=== PATIENT | male | born 1945 | race Caucasian/White ===

== ENCOUNTER → 2018-05-20 07:01 | Outpatient (CLI) | payer MEDICARE, SELFPAY ==
[2018-05-20 09:47] LABS: Alanine Aminotransferase 39 IU/L (21-72); Albumin 4.4 g/dL (3.5-5.0); Albumin Globulin Ratio 1.6 (1.0-2.8); Alkaline Phosphatase 67 U/L (38-126); Aspartate Aminotransferase 28 IU/L (17-59); BUN Creatinine Ratio 21.1 (6-22); Bilirubin Total 0.9 mg/dL (0.2-1.3); Blood Urea Nitrogen 19 mg/dL (9-20); Calcium 8.9 mg/dL (8.4-10.2); Carbon Dioxide 27 mmol/L (22-32); Chloride 103 mmol/L (98-107); Cholesterol 114 mg/dL (140-199); Estimated Glomerular Filt Rate > 60.0 mL/min (>60); Globulin 2.8 g/dL (1.7-4.1); Glucose 88 mg/dL (80-110); HDL Cholesterol 33 mg/dL (40-60); HEMOLYSIS < 15 (0-50); LDL Cholesterol Calculated 59 mg/dL (<100); Potassium 4.3 mmol/L (3.4-5.1); Sodium 144 mmol/L (137-145); Total Protein 7.2 g/dL (6.3-8.2); Triglycerides 112 mg/dL (35-150)
[2018-05-20 10:15] LABS: Prostate Specific Antigen Scrn 2.19 ng/mL (0.1-4.0)
== END ==
PROVIDERS: PCP Internal Medicine; Visit Provider Internal Medicine
DX: Z00.00 Encounter for general adult medical examination without abnormal findings (principal); I25.10 Atherosclerotic heart disease of native coronary artery without angina pectoris
CPT/HCPCS: 36415; 80053; 80061; G0103

== ENCOUNTER → 2019-07-27 07:53 | Outpatient (CLI) | payer MEDICARE, SELFPAY ==
--- NOTE | 2019-07-27 | DI.ECHO.S_ITS ---
[facility]---------+ [facility] +---------+ : : [address] : : : : [id number] : : : : Phone: [phone] +---------+ Echocardiogram Report + + :Name: SANJUANITA HOLLIDAY Study Date: 07/27/2019 Height: 67 in : :[facility] Weight: 190 lb : : Gender: Male BSA: 2.0 m2 : :: 1945 Age: 74 yrs BP: 142/80 mmHg: :Reason For Study: coronary angioplasty implant and graft : :Ordering Physician: Lowell : :Shane Babb Performed By: LRF : :Referring: LOWELL LYNN : + + Interpretation Summary The ejection fraction is estimated to be 55-60%. The right ventricle is mildly dilated. This is unchanged compared to the previous study. Right ventricular systolic function is mildly reduced. There is trace tricuspid regurgitation. The ascending aorta is mild-moderately enlarged. Procedure: A two-dimensional transthoracic echocardiogram with color flow and Doppler was performed. The study quality was technically adequate. Comparison is made with the echocardiogram of 07/23/2016. The subcostal views were difficult to obtain and are suboptimal in quality. The patient was in sinus bradycardia with heart rates between 55-62 bpm during the exam. The patient had occasional PVCs during the exam. Left Ventricle: The left ventricle is normal in size and wall thickness. The ejection fraction is estimated to be 55-60%. Left ventricular wall motion is normal. Right Ventricle: The right ventricle is mildly dilated. This is unchanged compared to the previous study. Right ventricular systolic function is mildly reduced. Atria: Both atria are normal in size. There is no Doppler evidence for an interatrial shunt. Mitral Valve: The mitral valve is normal in structure and function. There is trace mitral regurgitation. Aortic Valve: The aortic valve is trileaflet. The aortic valve opens well. No aortic regurgitation is present. Tricuspid Valve: The tricuspid valve is normal in structure and function. There is trace tricuspid regurgitation. Pulmonic Valve: The pulmonic valve is not well visualized. There is moderate pulmonic regurgitation. Great Vessels: The aortic root is normal size. The ascending aorta is mild- moderately enlarged. The inferior vena cava was not visualized. Pericardium/ Pleura There is no pericardial effusion. MMode/2D Measurements & Calculations LVIDd: 4.3 cm LVOT diam: 2.2 cm LVIDs: 3.0 cm Ao root diam: 3.2 cm FS: 31.1 % asc Aorta Diam: 3.7 cm EPSS: 0.95 cm IVSd: 1.0 cm LVPWd: 0.94 cm LV grimes. diameter/BSA (cm/m^2): 2.2 LV sys. diameter/BSA (cm/m^2): 1.5 LA A2 area: 19.2 cm2 RA long axis: 5.0 cm LA A4 area: 15.9 cm2 RA area: 15.4 cm2 LA length (vol): 4.7 cm RA vol: 40.7 ml LA vol: 54.7 ml RA : 20.5 ml/m2 LA vol index: 27.6 ml/m2 RVD1 (basal): 4.1 cm Doppler Measurements & Calculations Ao V2 max: 108.8 cm/sec LVOT Max Neel: 88.7 cm/sec Ao V2 mean: 65.4 cm/sec LV V1 max P.1 mmHg Ao max P.7 mmHg LV V1 VTI: 21.4 cm Ao mean P.1 mmHg VARUN(I,D): 3.6 cm2 Ao V2 VTI: 21.8 cm VARUN(V,D): 3.0 cm2 sev ratio: 0.98 VARUN indexed to BSA (cm^2/m^2): 1.8 MV E max neel: 54.2 cm/sec PA V2 max: 73.0 cm/sec MV A max neel: 61.0 cm/sec PA V2 mean: 47.5 cm/sec MV E/A: 0.89 PA mean P.0 mmHg Med Peak E' Neel: 5.5 cm/sec E/E' med: 9.8 Lat Peak E' Neel: 8.5 cm/sec E/E' lat: 6.4 E/e' average: 8.1 MV dec time: 0.18 sec MV P1/2t: 56.8 msec MV P1/2t max neel: 55.9 cm/sec SV(LVOT): 79.4 ml MVA(P1/2t): 3.9 cm2 Reading Physician:11:37 AM
== END ==
PROVIDERS: PCP Internal Medicine; Referring Provider Internal Medicine Cardiovascular Disease; Visit Provider Internal Medicine Cardiovascular Disease
DX: I37.1 Nonrheumatic pulmonary valve insufficiency (principal); I25.119 Atherosclerotic heart disease of native coronary artery with unspecified angina pectoris; Z95.5 Presence of coronary angioplasty implant and graft; I77.89 Other specified disorders of arteries and arterioles
CPT/HCPCS: 93306

== ENCOUNTER → 2019-08-17 07:53 | Outpatient (CLI) | payer MEDICARE, SELFPAY ==
[2019-08-17 09:19] LABS: Alanine Aminotransferase 38 IU/L (<50); Albumin 4.6 g/dL (3.5-5.0); Albumin Globulin Ratio 1.5 (1.0-2.8); Alkaline Phosphatase 72 U/L (38-126); Aspartate Aminotransferase 32 IU/L (17-59); BUN Creatinine Ratio 17.8 (6-22); Bilirubin Total 0.5 mg/dL (0.2-1.3); Blood Urea Nitrogen 16 mg/dL (9-20); Calcium 9.5 mg/dL (8.4-10.2); Carbon Dioxide 28 mmol/L (22-32); Chloride 104 mmol/L (98-107); Cholesterol 146 mg/dL (140-199); Estimated Glomerular Filt Rate > 60.0 mL/min (>60); Glucose 103 mg/dL (80-110); HDL Cholesterol 30 mg/dL (40-60); HEMOLYSIS < 15 (0-50); LDL Cholesterol Calculated 62 mg/dL (<100); Potassium 4.4 mmol/L (3.4-5.1); Sodium 142 mmol/L (137-145); Total Protein 7.6 g/dL (6.3-8.2); Triglycerides 272 mg/dL (35-150)
[2019-08-17 09:49] LABS: Prostate Specific Antigen Scrn 1.86 ng/mL (0.1-4.0)
== END ==
PROVIDERS: PCP Internal Medicine; Referring Provider Internal Medicine; Visit Provider Internal Medicine
DX: Z00.00 Encounter for general adult medical examination without abnormal findings (principal); I25.10 Atherosclerotic heart disease of native coronary artery without angina pectoris; E78.00 Pure hypercholesterolemia, unspecified
CPT/HCPCS: 36415; 80053; 80061; G0103

== ENCOUNTER → 2021-05-08 07:13 | Outpatient (CLI) | payer MEDICARE, SELFPAY ==
[2021-05-08 08:17] LABS: Add Manual Diff / Slide Review NO; Basophils Absolute Auto 0 /uL (0-100); Basophils Percent Auto 0.7 % (0-2); Eosinophils Absolute Auto 400 /uL (0-450); Hematocrit 46.5 % (41-53); Hemoglobin 15.9 g/dL (13.5-17.5); Lymphocytes Absolute Auto 1700 /uL (1100-4500); Mean Corpuscular HGB Conc 34.1 % (30-36); Mean Corpuscular Hemoglobin 31.2 PG (26-34); Mean Corpuscular Volume 91.4 fL (80-100); Monocytes Absolute Auto 600 /uL (0-900); Monocytes Percent Auto 9.2 % (3-14); Neutrophils Absolute Auto 3700 /uL (1500-7000); Neutrophils Percent Auto 58.1 % (50-75); Platelet Count 202 X10^3/uL (150-400); Red Blood Cell Count 5.09 X10^6/uL (4.5-5.9); Red Cell Distribution Width 13.1 % (11.6-14.8); White Blood Cell Count 6.4 X10^3/uL (4.5-11.0)
[2021-05-08 09:02] LABS: Alanine Aminotransferase 40 IU/L (<50); Albumin 4.5 g/dL (3.5-5.0); Albumin Globulin Ratio 1.6 (1.0-2.8); Alkaline Phosphatase 61 U/L (38-126); Aspartate Aminotransferase 34 IU/L (17-59); BUN Creatinine Ratio 20.2 (6-22); Bilirubin Total 1.1 mg/dL (0.2-1.3); Blood Urea Nitrogen 18 mg/dL (9-20); Calcium 9.4 mg/dL (8.4-10.2); Carbon Dioxide 28 mmol/L (22-32); Chloride 104 mmol/L (98-107); Cholesterol 136 mg/dL (140-199); Estimated Glomerular Filt Rate > 60.0 mL/min (>60); Globulin 2.9 g/dL (1.7-4.1); Glucose 88 mg/dL (80-110); HDL Cholesterol 31 mg/dL (40-60); HEMOLYSIS < 15 (0-50); LDL Cholesterol Calculated 72 mg/dL (<100); Potassium 4.4 mmol/L (3.4-5.1); Sodium 140 mmol/L (137-145); Total Protein 7.4 g/dL (6.3-8.2); Triglycerides 166 mg/dL (35-150)
[2021-05-08 09:31] LABS: Prostate Specific Antigen 1.68 ng/mL (0.10-4.00)
== END ==
PROVIDERS: PCP Internal Medicine; Referring Provider Internal Medicine; Visit Provider Internal Medicine
DX: I25.119 Atherosclerotic heart disease of native coronary artery with unspecified angina pectoris (principal); Z12.5 Encounter for screening for malignant neoplasm of prostate
CPT/HCPCS: 36415; 80053; 80061; 84153; 85025; G0103

== ENCOUNTER → 2021-12-24 08:59 | Outpatient (CLI) | payer MEDICARE, SELFPAY ==
--- NOTE | 2021-12-24 09:02 | DI.ECHO.S_ITS ---
[facility] +---------+ [facility] +---------+ : : [address] : : : : [id number] : : : : Phone: [phone] +---------+ Echocardiogram Report + + :Name: SANJUANITA HOLLIDAY Study Date: 12/24/2021 Height: 66 in : :[facility] ReadingLocation: Weight: 195 lb : : Gender: Male BSA: 2.0 m2 : :: 1945 Age: 76 yrs BP: 156/100 mmHg: :Reason For Study: ATHEROSCLEROTIC HEART DISEASE : :Ordering Physician: ANNY, : :JHONATAN Performed By: Rosa Elena Salcido : :Referring: JHONATAN MCCORMICK : + + Interpretation Summary The ejection fraction is estimated to be 55-60%. The right ventricle is mildly dilated. There is mild to moderate pulmonic regurgitation. Procedure: A two-dimensional transthoracic echocardiogram with color flow and Doppler was performed. The study quality was technically adequate. Comparison is made with the echocardiogram of 07/27/2019. The patient was in sinus rhythm with heart rates between 65-75 bpm during the exam. Left Ventricle: The left ventricle is normal in size and wall thickness. The ejection fraction is estimated to be 55-60%. Left ventricular wall motion is normal. Right Ventricle: The right ventricle is mildly dilated. Right ventricular systolic function is mildly reduced. Atria: The left atrial size is normal. Right atrial size is normal. There is no Doppler evidence for an interatrial shunt. Mitral Valve: The mitral valve is normal in structure and function. There is no mitral regurgitation. Aortic Valve: The aortic valve is trileaflet. The aortic valve opens well. There is no aortic valve stenosis. No aortic regurgitation is present. Tricuspid Valve: The tricuspid valve is normal in structure and function. There is trace tricuspid regurgitation. Pulmonic Valve: The pulmonic valve is not well visualized. There is mild to moderate pulmonic regurgitation. Great Vessels: The aortic root is normal size. The ascending aorta is mildly enlarged. The inferior vena cava was not well visualized. Pericardium/ Pleura There is no pericardial effusion. There is no pleural effusion. MMode/2D Measurements & Calculations LVIDd: 5.0 cm LVOT diam: 2.2 cm LVIDs: 3.6 cm Ao root diam: 3.5 cm FS: 27.9 % asc Aorta Diam: 3.8 cm EPSS: 1.1 cm Ao Arch Diam (Prox Trans): 2.8 cm IVSd: 0.81 cm LVPWd: 0.97 cm LV grimes. diameter/BSA (cm/m^2): 2.5 LV sys. diameter/BSA (cm/m^2): 1.8 LA A2 area: 15.2 cm2 RA long axis: 4.9 cm LA A4 area: 11.4 cm2 RA area: 12.6 cm2 LA length (vol): 4.7 cm RA vol: 27.3 ml LA vol: 31.2 ml RA : 13.8 ml/m2 LA vol index: 15.8 ml/m2 RVD1 (basal): 4.1 cm RVD2 (mid): 4.0 cm TAPSE: 1.7 cm Doppler Measurements & Calculations Ao V2 max: 129.7 cm/sec LVOT Max Neel: 92.4 cm/sec Ao V2 mean: 93.4 cm/sec LV V1 max P.4 mmHg Ao max P.7 mmHg LV V1 VTI: 18.7 cm Ao mean P.8 mmHg VARUN(I,D): 2.7 cm2 Ao V2 VTI: 25.2 cm VARUN(V,D): 2.6 cm2 sev ratio: 0.74 VARUN indexed to BSA (cm^2/m^2): 1.4 MV E max neel: 47.8 cm/sec PA V2 max: 104.2 cm/sec MV A max neel: 96.4 cm/sec PA V2 mean: 72.3 cm/sec MV E/A: 0.50 PA mean P.3 mmHg Lat Peak E' Neel: 8.9 cm/sec PA pr(Accel): 13.9 mmHg E/E' lat: 5.4 MV dec time: 0.32 sec SV(LVOT): 68.8 ml Reading Physician:10:29 AM
== END ==
PROVIDERS: PCP Internal Medicine; Referring Provider Nurse Practitioner Family; Visit Provider Nurse Practitioner Family
DX: I37.1 Nonrheumatic pulmonary valve insufficiency (principal); I25.10 Atherosclerotic heart disease of native coronary artery without angina pectoris; I77.89 Other specified disorders of arteries and arterioles
CPT/HCPCS: 93306